=== PATIENT | male | born 1970 | race Caucasian/White ===

== ENCOUNTER 2024-01-15 09:41 | Outpatient (OUT) | payer OTHER, SELFPAY ==
--- NOTE | 2024-01-15 | XR_ITS ---
The [address] [address] Patient Name: NEY GASPAR MRN: [id number] date: 1970 Sex: M Assigned Patient Location: Current Patient Location: Accession/Order Number: [id number] Exam Date: 01/15/2024 09:41 Report Date: 01/20/2024 07:01 At the request of: TYRA GOMEZ Procedure: XR foot LT min 3V PROCEDURE: XR foot LT min 3V COMPARISON: None. HISTORY: LEFT FOOT PAIN FINDINGS: BONES:No acute fracture or spondylolisthesis. Minimal enthesopathic spurring plantar calcaneus. Minimal degenerative changes of the midfoot SOFT TISSUES:Negative. No visible soft tissue swelling. EFFUSION:None visible. OTHER: Negative. XR/XR foot LT min 3V IMPRESSION: Minimal degenerative changes Electronically authenticated by: EMILY BRIGHT Date: 01/20/2024 07:01
== END 2024-01-15 09:42 | disposition home or self-care (01) ==
PROVIDERS: Visit Provider Physician Assistant
DX: M79.672 Pain in left foot (principal)
CPT/HCPCS: 73630